=== PATIENT | female | born 1955 | race Asian ===

== ENCOUNTER 2023-09-24 05:41 | Emergency (ER) | payer OTHER ==
[2023-09-24 05:58] VITALS: PULSE 89; RESP 18; TEMP 99.5; BMI 26.0
[2023-09-24 06:01] VITALS: BP 116/73
[2023-09-24] MEDS ORDERED: ACETAMINOPHEN 500 MG TABLET (FP) ONE (06:33)
[2023-09-24] MEDS: ACETAMINOPHEN 500 MG TABLET (FP) PO ONE (06:40)
== END 2023-09-24 08:59 | disposition home or self-care (01) ==
LOC: JER 05:41
DX: S90.31XA Contusion of right foot, initial encounter (principal); S80.02XA Contusion of left knee, initial encounter; M25.562 Pain in left knee; G89.29 Other chronic pain; M25.571 Pain in right ankle and joints of right foot; X50.1XXA Overexertion from prolonged static or awkward postures, initial encounter; Y92.830 Public park as the place of occurrence of the external cause
CPT/HCPCS: 71046-TC-FY; 73562-TC-LT-FY; 73610-TC-RT-FY; 73630-TC-RT-FY; 99284-25